=== PATIENT | male | born 1980 | race Caucasian/White ===

== ENCOUNTER 2018-11-25 18:32 | Emergency (ER) | payer SELFPAY ==
[~2018-11-25] VITALS: Ht 137.2 cm; Wt 100.0 kg
[2018-11-25 18:38] VITALS: Ht 137.2 cm; Wt 100.0 kg
[2018-11-25] MEDS ORDERED: SULFAMETHOXAZOL1 TA2 PO (18:40)
[2018-11-25 18:57] LABS: APPEARANCE CLEAR (CLEAR); COLOR YELLOW (YELLOW)
[2018-11-25 18:58] LABS: BILIRUBIN NEGATIVE (NEGATIVE); GLUCOSE NEGATIVE (NEGATIVE); KETONE NEGATIVE (NEGATIVE); NITRITE NEGATIVE (NEGATIVE); PROTEIN NEGATIVE (NEGATIVE); UROBILINOGEN NORMAL (NORMAL)
[2018-11-25] MEDS ORDERED: TORADOL10 MG PO (19:53)
[2018-11-25 20:00] VITALS: BP 133/61
== END 2018-11-25 20:16 | disposition home or self-care (01) ==
LOC: D.ER 18:32
PROVIDERS: Family Medicine
DX: S20.211A Contusion of right front wall of thorax, initial encounter (principal); W17.2XXA Fall into hole, initial encounter; Y93.89 Activity, other specified; Y92.89 Other specified places as the place of occurrence of the external cause